=== PATIENT | male | born 1980 | race Caucasian/White ===

== ENCOUNTER 2021-12-09 22:22 | Emergency (ER) | payer OTHER ==
[2021-12-09 22:46] VITALS: BP 153/95
--- NOTE | 2021-12-09 22:50 | ED Physician Documentation ---
History of Present Illness - Stated complaint Stated Complaint: FIT - Chief complaint Chief Complaint: General - History obtained from History obtained from: Patient, Police - Additonal information Additional information: 41-year-old man presents as evaluation for fit for confinement to custodial. Patient was drinking alcohol this evening, reporting fireball whiskey. denies injury or specific complaint. ambulatory without difficulty. AOX3 Review of Systems Ten Systems: 10 systems reviewed and negative PD PAST MEDICAL HISTORY - Past Medical History Past Medical History: Yes Cardiovascular: None Respiratory: None Neuro: None Endocrine/Autoimmune: None GI: Crohn's disease : None HEENT: None Psych: Anxiety Musculoskeletal: None Derm: None - Past Surgical History Past Surgical History: No - Allergies Allergies/Adverse Reactions: Allergies Allergy/AdvReac Type Severity Reaction Status Date / Time No Known Drug Allergies Allergy Verified 12/09/21 22:45 - Social History Does the pt smoke?: No Smoking Status: Never smoker Does the pt drink ETOH?: Yes Does the pt have substance abuse?: No - Immunizations Immunizations are current?: No - POLST Patient has POLST: No PD ED PE NORMAL - Vitals Vital signs reviewed: Yes - General General: Alert and oriented X 3, No acute distress, Well developed/nourished - HEENT HEENT: Atraumatic, PERRL, EOMI - Neck Neck: Supple, no meningeal sign - Cardiac Cardiac: RRR - Respiratory Respiratory: No respiratory distress, Clear bilaterally - Derm Derm: Normal color, Warm and dry - Neuro Neuro: Alert and oriented X 3 - Psych Psych: Normal mood Results - Vitals Vitals: Vital Signs - 24 hr 12/09/21 22:43 Temperature 37.4 C Heart Rate 107 H Respiratory 17 Rate Blood Pressure 153/95 H O2 Saturation 95 Oxygen O2 Source Room air PD MEDICAL DECISION MAKING - ED course ED course: 41-year-old man presented to the ED for fit for confinement. He had alcohol earlier in the evening but is speaking in clear sentences, alert and oriented x3, ambulatory without difficulty. Will discharge to custodial to follow-up with custodial medical office worker Ashley Larsen. Return precautions given. Departure - Departure Disposition: 01 Home, Self Care Clinical Impression: Alcohol abuse Condition: Stable Instructions: Alcoholism Comments: You are seen in the emergency department for evaluation prior to confinement. Your physical exam uncovered no emergent conditions. Please return to the emergency department if you have other concerns. Follow-up with the custodial medical office worker.
== END 2021-12-09 22:54 | disposition home or self-care (01) ==
LOC: ED 22:22
DX: Z02.89 Encounter for other administrative examinations (principal); F10.10 Alcohol abuse, uncomplicated
CPT/HCPCS: 99281